=== PATIENT | male | born 1990 | race Caucasian/White ===

== ENCOUNTER 2021-02-26 11:25 | Inpatient (IN) ==
[2021-02-26 12:30] LABS: ALT 14 U/L (7-52); AST 15 U/L (13-39); Albumin 4.5 g/dL (3.2-5.2); Albumin/Globulin Ratio 1.5 (1-3); Alkaline Phosphatase 69 U/L (35-149); Anion Gap 5 mmol/L (2-11); Blood Urea Nitrogen 24 mg/dL (6-24); CO2 Carbon Dioxide 29 mmol/L (22-32); Calcium 9.3 mg/dL (8.6-10.3); Chloride 103 mmol/L (101-111); EGFR African American 144.8 (>60); EGFR Non-African American 119.6 (>60); Globulin 3.1 g/dL (2-4); Glucose 145 mg/dL (70-100); Potassium 3.6 mmol/L (3.5-5.0); Sodium 137 mmol/L (135-145); Total Protein 7.6 g/dL (6.4-8.9)
[2021-02-26 12:35] LABS: Hematocrit 29 % (42-52); Hemoglobin 8.6 g/dL (14.0-18.0); Mean Corpuscular HGB Conc 30 g/dL (31-36); Mean Corpuscular Hemoglobin 20 pg (27-31); Mean Corpuscular Volume 67 fL (80-94); Mean Platelet Volume 9.1 fL (7.4-10.4); Platelet Count 447 10^3/uL (150-450); Red Blood Count 4.39 10^6 /uL (4.18-5.48); Red Cell Distribution Width 33 % (10-15); White Blood Count 5.1 10^3/uL (3.5-10.8)
[2021-02-26 12:48] LABS: Acetaminophen < 15 mcg/mL; Alcohol, S < 13 mg/dL (<13); Salicylate < 2.50 mg/dL (<30)
[2021-02-26 12:58] LABS: TSH Ultra Thyroid Stim Horm 0.39 mcIU/mL (0.34-5.60)
[2021-02-26 13:06] LABS: ABS Basophils 0.1 10^3/ul (0-0.2); ABS Eosinophils 0.1 10^3/ul (0-0.6); ABS Lymphocytes 1.8 10^3/ul (1.0-4.8); ABS Monocytes 0.4 10^3/ul (0-0.8); ABS Neutrophils 2.8 10^3/ul (1.5-7.7); Eosinophil % 1.7 %; Lymphocyte % 35.6 %
[2021-02-26 13:30] LABS: Hypochromasia 3+; Microcytosis 3+
[2021-02-26 13:36] LABS: Urine Appearance Cloudy; Urine Bilirubin Negative (Negative); Urine Blood Negative (Negative); Urine Color Yellow; Urine Glucose Negative (Negative); Urine Ketones Negative (Negative); Urine Nitrite Negative (Negative); Urine Protein Negative (Negative); Urine Specific Gravity 1.025 (1.002-1.030); Urine Urobilinogen Negative (Negative)
[2021-02-26 13:53] LABS: Urine Benzodiazepine Screen None Detected (None Detect); Urine Cannabinoids Screen Presumptive Positive (None Detect); Urine Opiates Screen None Detected (None Detect)
[2021-02-27] MEDS ORDERED: Al Hydrox/Mg Hydrox/Simet LIQ 30 ML UDC PO PRN (00:45)
[2021-02-27] MEDS ORDERED: Nicotine GUM 2MG FRUIT FLAVOR PO PRN (01:00)
[2021-02-27] MEDS: Vitamin THERAPEUTIC TAB PO SCH (09:40)
[2021-02-27] MEDS: Nicotine PATCH 21 MG/24 HR PATCH TRANSDERM SCH (09:40)
[2021-02-27 15:31] LABS: ABS Basophils 0.1 10^3/ul (0-0.2); ABS Eosinophils 0.1 10^3/ul (0-0.6); ABS Lymphocytes 1.7 10^3/ul (1.0-4.8); ABS Monocytes 0.4 10^3/ul (0-0.8); ABS Neutrophils 4.6 10^3/ul (1.5-7.7); Eosinophil % 1.1 %; Hematocrit 27 % (42-52); Hemoglobin 8.4 g/dL (14.0-18.0); Lymphocyte % 25.6 %; Mean Corpuscular HGB Conc 31 g/dL (31-36); Mean Corpuscular Hemoglobin 20 pg (27-31); Mean Corpuscular Volume 66 fL (80-94); Mean Platelet Volume 8.7 fL (7.4-10.4); Platelet Count 402 10^3/uL (150-450); Red Blood Count 4.16 10^6 /uL (4.18-5.48); Red Cell Distribution Width 33 % (10-15); White Blood Count 6.8 10^3/uL (3.5-10.8)
[2021-02-28 08:22] LABS: ABS Basophils 0.1 10^3/ul (0-0.2); ABS Eosinophils 0.1 10^3/ul (0-0.6); ABS Monocytes 0.4 10^3/ul (0-0.8); ABS Neutrophils 2.4 10^3/ul (1.5-7.7); Eosinophil % 2.9 %; Hematocrit 29 % (42-52); Hemoglobin 8.8 g/dL (14.0-18.0); Lymphocyte % 38.8 %; Mean Corpuscular HGB Conc 30 g/dL (31-36); Mean Corpuscular Hemoglobin 20 pg (27-31); Mean Corpuscular Volume 67 fL (80-94); Mean Platelet Volume 8.6 fL (7.4-10.4); Nucleated Red Blood Cells % 0.1; Platelet Count 416 10^3/uL (150-450); Red Blood Count 4.36 10^6 /uL (4.18-5.48); Red Cell Distribution Width 33 % (10-15); White Blood Count 5.1 10^3/uL (3.5-10.8)
[2021-02-28 08:37] LABS: Calcium 8.8 mg/dL (8.6-10.3); EGFR Non-African American 121.5 (>60); HDL Cholesterol 45.5 mg/dL; Potassium 4.4 mmol/L (3.5-5.0)
[2021-02-28 08:42] LABS: Total Iron Binding Capacity 504 mcg/dL (250-450); Transferrin 360 mg/dL (203-362)
[2021-02-28 08:44] LABS: % Iron Saturation 4 % (15-55); Iron < 20 ug/dL (50-212); Unsaturated Iron Binding < 489 ug/dL
[2021-02-28 09:05] LABS: Ferritin 4.9 ng/mL (24-336)
[2021-02-28 09:08] LABS: Folate 6.47 ng/mL (5.90-24.80); Hypochromasia 2+; Microcytosis 3+
[2021-02-28 09:09] LABS: Vitamin B12 138 pg/mL (180-914)
[2021-02-28] MEDS: Nicotine PATCH 21 MG/24 HR PATCH TRANSDERM SCH (09:11)
[2021-02-28] MEDS: Vitamin THERAPEUTIC TAB PO SCH (09:11)
[2021-03-01 08:38] LABS: ABS Basophils 0.1 10^3/ul (0-0.2); ABS Eosinophils 0.1 10^3/ul (0-0.6); ABS Lymphocytes 2.1 10^3/ul (1.0-4.8); ABS Monocytes 0.4 10^3/ul (0-0.8); Corrected Retic Count 0.9 % (0.5-1.5); Eosinophil % 2.1 %; Hematocrit 33 % (42-52); Hematocrit for Retic CNT 33 % (42-52); Hemoglobin 9.8 g/dL (14.0-18.0); Immature Retic Fraction 0.37; Lymphocyte % 36.7 %; Mean Corpuscular HGB Conc 30 g/dL (31-36); Mean Corpuscular Hemoglobin 20 pg (27-31); Mean Corpuscular Volume 67 fL (80-94); Mean Platelet Volume 9.1 fL (7.4-10.4); Platelet Count 490 10^3/uL (150-450); RBC Retic Count 4.85 10^6/uL (4.18-5.48); Red Blood Count 4.85 10^6 /uL (4.18-5.48); Red Cell Distribution Width 33 % (10-15); White Blood Count 5.7 10^3/uL (3.5-10.8)
[2021-03-01] MEDS: Vitamin THERAPEUTIC TAB PO SCH (08:43)
[2021-03-01] MEDS: Nicotine PATCH 21 MG/24 HR PATCH TRANSDERM SCH (08:44)
[2021-03-02] MEDS: Nicotine PATCH 21 MG/24 HR PATCH TRANSDERM SCH (08:51)
[2021-03-02] MEDS: Vitamin THERAPEUTIC TAB PO SCH (08:51)
[2021-03-02] MEDS ORDERED: Cyanocobalamin INJ 1,000 MCG/ML VIAL 1 ML VIAL IM ONE (12:00)
[2021-03-03] MEDS: Vitamin THERAPEUTIC TAB PO SCH (08:19)
[2021-03-03] MEDS: Nicotine PATCH 21 MG/24 HR PATCH TRANSDERM SCH (08:19)
[2021-03-03 10:36] VITALS: BP 109/64
== END 2021-03-03 17:30 | disposition home or self-care (01) | DRG 753 ==
LOC: ED 11:25 → BSU 20:05
PROVIDERS: ADMIT Psychiatry & Neurology Psychiatry; ATTEND Psychiatry & Neurology Psychiatry

== ENCOUNTER 2022-12-01 00:11 | Inpatient (IN) ==
[2022-12-01 01:17] LABS: ABS Basophils 0.1 10^3/uL (0.0-0.1); ABS Lymphocytes 2.5 10^3/uL (1.0-4.8); ABS Neutrophils 8.3 10^3/uL (1.5-7.6); ABS Nucleated RBC 0.01 10^3/ul; Eosinophil % 0.3 %; Hematocrit 48.5 % (38-53); Hemoglobin 16.8 g/dL (13.2-16.3); Lymphocyte % 20.7 %; Mean Corpuscular Hemoglobin 31.4 pg (27-33); Mean Corpuscular Hgb Conc 34.7 g/dL (31-36); Mean Corpuscular Volume 90.4 fL (80-97); Mean Platelet Volume 8.8 fL (7.5-11.2); Nucleated Red Blood Cells % 0.1 /100 WBC (0.0-0.4); Platelet Count 294 10^3/uL (150-450); Red Blood Count 5.36 10^6/uL (4.06-5.63); Red Cell Distribution Width 14.2 % (12-17); White Blood Count 11.9 10^3/uL (3.6-10.2)
[2022-12-01 01:49] LABS: CO2 Carbon Dioxide 26 mmol/L (22-32); Chloride 102 mmol/L (101-111); Sodium 140 mmol/L (135-145)
[2022-12-01 01:50] LABS: ALT 13 U/L (7-52); AST 16 U/L (13-39); Acetaminophen < 15 mcg/mL; Albumin 4.6 g/dL (3.2-5.2); Albumin/Globulin Ratio 1.8 (1-3); Alcohol, S < 13 mg/dL (<13); Alkaline Phosphatase 157 U/L (35-149); Anion Gap 12 mmol/L (2-16); Blood Urea Nitrogen 10 mg/dL (6-24); Calcium 9.5 mg/dL (8.6-10.3); Creatinine, Serum 0.98 mg/dL (0.67-1.17); Globulin 2.6 g/dL (2-4); Glucose 98 mg/dL (70-100); Salicylate < 2.50 mg/dL (<30); Total Protein 7.2 g/dL (6.4-8.9); eGFR CKD-EPI 104.4 (>60)
[2022-12-01 02:04] LABS: TSH Ultra Thyroid Stim Horm 2.21 mcIU/mL (0.34-5.60)
[2022-12-01 02:15] LABS: Vitamin B12 118 pg/mL (180-914)
[2022-12-01] MEDS ORDERED: Al Hydrox/Mg Hydrox/Simet LIQ 30 ML UDC PO PRN (03:39)
[2022-12-01] MEDS ORDERED: Nicotine GUM 2MG FRUIT FLAVOR PO PRN (04:00)
[2022-12-01] MEDS ORDERED: Cyanocobalamin INJ 1,000 MCG/ML VIAL 1 ML VIAL IM SCH (09:00)
[2022-12-01] MEDS: Vitamin THERAPEUTIC TAB PO SCH (09:16)
[2022-12-01 11:59] LABS: Folate 7.54 ng/mL (5.90-24.80)
[2022-12-01 12:02] LABS: Vitamin D Total 25(OH) 17.3 ng/mL (20-50)
[2022-12-02] MEDS: Vitamin THERAPEUTIC TAB PO SCH (08:44)
[2022-12-03] MEDS: Vitamin THERAPEUTIC TAB PO SCH (08:17)
[2022-12-04] MEDS: Vitamin THERAPEUTIC TAB PO SCH (07:54)
[2022-12-05] MEDS: Vitamin THERAPEUTIC TAB PO SCH (07:14)
[2022-12-06 08:15] VITALS: BP 120/66
[2022-12-06] MEDS: Vitamin THERAPEUTIC TAB PO SCH (08:53)
== END 2022-12-06 14:49 | disposition home or self-care (01) | DRG 885 ==
LOC: ED 00:11 → BSU 03:00
PROVIDERS: ADMIT Psychiatry & Neurology Psychiatry; ATTEND Psychiatry & Neurology Psychiatry

== ENCOUNTER 2023-01-13 12:38 | Inpatient (IN) ==
[2023-01-13 16:35] LABS: Urine Appearance Clear; Urine Bilirubin 1+ (Negative); Urine Blood Negative (Negative); Urine Color Amber; Urine Glucose Negative (Negative); Urine Ketones Negative (Negative); Urine Nitrite Negative (Negative); Urine Protein 1+(30 mg/dL) (Negative); Urine Urobilinogen Positive (Negative)
[2023-01-13 16:38] LABS: Hematocrit 42.3 % (38-53); Hemoglobin 14.5 g/dL (13.2-16.3); Mean Corpuscular Hemoglobin 31.2 pg (27-33); Mean Corpuscular Hgb Conc 34.2 g/dL (31-36); Mean Corpuscular Volume 91.3 fL (80-97); Red Blood Count 4.63 10^6/uL (4.06-5.63); Red Cell Distribution Width 13.1 % (12-17)
[2023-01-13 16:39] LABS: Urine Bacteria Absent (Absent); Urine Red Blood Cell Trace(0-2/hpf) (Absent); Urine White Blood Cell Trace(0-5/hpf) (Absent)
[2023-01-13 16:55] LABS: ABS Basophils 0.1 10^3/uL (0.0-0.1); ABS Eosinophils 0.2 10^3/uL (0.0-0.5); ABS Lymphocytes 1.8 10^3/uL (1.0-4.8); ABS Monocytes 0.5 10^3/uL (0.0-1.1); ABS Neutrophils 3.5 10^3/uL (1.5-7.6); Eosinophil % 3.7 %; Lymphocyte % 29.5 %; Mean Platelet Volume 9.3 fL (7.5-11.2); Nucleated Red Blood Cells % 0.1 /100 WBC (0.0-0.4); Platelet Count 261 10^3/uL (150-450)
[2023-01-13 17:11] LABS: ALT 12 U/L (7-52); AST 18 U/L (13-39); Albumin 4.3 g/dL (3.2-5.2); Albumin/Globulin Ratio 1.5 (1-3); Alkaline Phosphatase 88 U/L (35-149); Anion Gap 4 mmol/L (2-16); Blood Urea Nitrogen 16 mg/dL (6-24); CO2 Carbon Dioxide 29 mmol/L (22-32); Calcium 9.7 mg/dL (8.6-10.3); Chloride 107 mmol/L (101-111); Creatinine, Serum 0.95 mg/dL (0.67-1.17); Globulin 2.8 g/dL (2-4); Glucose 166 mg/dL (70-100); Potassium 4.1 mmol/L (3.5-5.0); Sodium 140 mmol/L (135-145); Total Protein 7.1 g/dL (6.4-8.9); eGFR CKD-EPI 108.4 (>60)
[2023-01-13 17:15] LABS: Urine Benzodiazepine Screen None Detected (None Detect); Urine Cannabinoids Screen Presumptive Positive (None Detect); Urine Opiates Screen None Detected (None Detect)
[2023-01-13 17:30] LABS: Acetaminophen < 15 mcg/mL; Alcohol, S < 13 mg/dL (<13); Salicylate < 2.50 mg/dL (<30)
[2023-01-13 17:35] LABS: TSH Ultra Thyroid Stim Horm 0.63 mcIU/mL (0.34-5.60)
[2023-01-13] MEDS ORDERED: Al Hydrox/Mg Hydrox/Simet LIQ 30 ML UDC PO PRN (19:47)
[2023-01-14] MEDS: Vitamin THERAPEUTIC TAB PO SCH (10:26)
[2023-01-15] MEDS: Vitamin THERAPEUTIC TAB PO SCH (10:31)
[2023-01-16] MEDS: Vitamin THERAPEUTIC TAB PO SCH (07:32)
[2023-01-17] MEDS: Vitamin THERAPEUTIC TAB PO SCH (07:49)
[2023-01-17 10:01] VITALS: BP 108/65
== END 2023-01-17 11:17 | disposition home or self-care (01) | DRG 750 ==
LOC: ED 12:38 → EDHOLD 19:47 → BSU 20:20
PROVIDERS: ADMIT Psychiatry & Neurology Psychiatry; ATTEND Psychiatry & Neurology Psychiatry